=== PATIENT | female | born 1945 | race Caucasian/White ===

== ENCOUNTER → 2016-12-28 | Outpatient (CLI) | payer BC ==
[~2016-12-28] MED LIST: ATIVAN 0.50.5 MG/TAB PO; CELEBREX 200MG200 MG PO; CHONDROITIN PO; CLEOCIN HC150 MG/CAP PO; GLU PO; MACRODANTIN50 MG/CA1 PO; MIRALAX PA17 GM/Dose PO; NORCO 325 MG-7.1 TAB; NORCO 325 MG-7.1 TAB PO; OMEGA-3 FISH1000 MG PO; PRILOSEC 20MG20 MG PO; PRINZIDE 12.5 M1 TAB PO; SKELAXIN 800MG800 MG PO; ULTRAM 50MG TAB50 MG PO; VESICARE10 MG PO; VITAMIN D2000 I1 PO; ZESTRIL 10MG10 MG PO; ZOCOR 40MG40 MG PO
== END ==
LOC: MC.RAD 08:00
DX: Z12.31 Encounter for screening mammogram for malignant neoplasm of breast (principal); Z85.3 Personal history of malignant neoplasm of breast

== ENCOUNTER → 2017-11-30 | Outpatient (CLI) | payer MEDICARE, OTHER | LOC: COL.RAD 09:32 | DX: Z91.89 Other specified personal risk factors, not elsewhere classified (principal); Z85.3 Personal history of malignant neoplasm of breast; Z90.710 Acquired absence of both cervix and uterus ==

== ENCOUNTER → 2018-01-06 | Outpatient (CLI) | payer MEDICARE, OTHER | LOC: MC.RAD 09:29 | DX: Z12.31 Encounter for screening mammogram for malignant neoplasm of breast (principal); Z98.890 Other specified postprocedural states ==

== ENCOUNTER → 2018-11-25 | Outpatient (CLI) | payer MEDICARE, OTHER | LOC: COL.RAD 09:22 | DX: Z85.3 Personal history of malignant neoplasm of breast (principal); Z90.710 Acquired absence of both cervix and uterus ==

== ENCOUNTER → 2019-01-11 | Outpatient (CLI) | payer MEDICARE, OTHER | LOC: MC.RAD 11:44 | DX: Z12.31 Encounter for screening mammogram for malignant neoplasm of breast (principal); Z98.890 Other specified postprocedural states ==

== ENCOUNTER → 2019-11-29 | Outpatient (CLI) | payer MEDICARE, OTHER | LOC: COL.RAD 09:00 | DX: Z85.3 Personal history of malignant neoplasm of breast (principal) ==

== ENCOUNTER → 2020-01-16 | Outpatient (CLI) | payer MEDICARE, OTHER | LOC: MC.RAD 13:41 | DX: Z12.31 Encounter for screening mammogram for malignant neoplasm of breast (principal); Z98.890 Other specified postprocedural states; Z85.3 Personal history of malignant neoplasm of breast ==

== ENCOUNTER → 2020-10-30 | Outpatient (CLI) | payer MEDICARE, OTHER ==
[2020-10-30 15:17] LABS: CREATININE, serum 0.73 (0.52-1.25)
== END ==
LOC: COL.LAB 14:09
PROVIDERS: Physician Assistant
DX: R07.0 Pain in throat (principal)

== ENCOUNTER 2021-03-04 14:30 | Outpatient (RCR) | payer MEDICARE, OTHER | END 2021-03-16 | disposition home or self-care (01) | LOC: WSST | DX: J38.7 Other diseases of larynx (principal) ==

== ENCOUNTER → 2021-03-20 | Outpatient (CLI) | payer MEDICARE, OTHER | LOC: MC.RAD 14:28 | DX: Z12.31 Encounter for screening mammogram for malignant neoplasm of breast (principal) ==

== ENCOUNTER 2021-04-15 12:45 | Outpatient (RCR) | payer MEDICARE, OTHER | END 2021-06-20 | disposition home or self-care (01) | LOC: WSST | DX: R49.0 Dysphonia (principal); J38.7 Other diseases of larynx ==

== ENCOUNTER → 2023-06-24 | Outpatient (CLI) | payer MEDICARE | LOC: MC.RAD 12:52 | DX: C57.00 Malignant neoplasm of unspecified fallopian tube (principal) ==

== ENCOUNTER → 2024-03-10 | Outpatient (CLI) | payer MEDICARE ==
[~2024-03-10] MED LIST changes: +AMOXICILLI125 MG/51; +AMOXICILLIN 50500 MG PO; +B-121000 MCG PO; +CRANBERRY500 M3 PO; +ELIQUIS 5MG PO; +LYNPARZA150 MG PO; +MAGNESIUM500 MG PO; +PHARMASSURE ZIN50 MG PO; +PROFERRIN ES12 MG PO; +VITAMIN B-6100 MG PO; +VITAMIN D31000 I1 PO
== END ==
LOC: MC.RAD 09:50
DX: Z12.31 Encounter for screening mammogram for malignant neoplasm of breast (principal)